=== PATIENT | female | born 1950 | race Caucasian/White ===

== ENCOUNTER → 2017-02-02 18:26 | Outpatient (CLI) | payer MEDICARE ==
[2013-05-06 09:50] VITALS: BMI 27.8
[~2017-02-02 18:26] MED LIST: ADVAIR 100/501 DISK; BYSTOLIC10 MG PO; COUMADIN1 MG PO; CYMBALTA60 MG PO; DUONEB 2.5-0.5 M3 ML INH; K-DUR20 MEQ PO; LASIX20 MG PO; MAGNESIUM OXID500 MG PO; MUCINEX PO; MUCINEX1200 MG/BO PO; ULTRAM50 MG PO; XANAX0.25 MG PO; [UNRECOGNIZED DRUG - OTHER]
== END | disposition home or self-care (01) ==
LOC: D.MAMMO 15:30
DX: Z12.31 Encounter for screening mammogram for malignant neoplasm of breast (principal)

== ENCOUNTER 2017-08-13 17:14 | Emergency (ER) | payer MEDICARE, OTHER | END 2017-08-13 20:03 | disposition home or self-care (01) | LOC: D.ER 17:14 | DX: K21.9 Gastro-esophageal reflux disease without esophagitis (principal) ==